=== PATIENT | female | born 1945 | race Two or more races ===

== ENCOUNTER 2023-05-23 14:20 | Emergency (ER) | payer OTHER, MEDICAID ==
[~2023-05-23] VITALS: Ht 172.7 cm; Wt 61.0 kg
[2023-05-23] MEDS: MORPHINE SULFATE 4 MG/ML CPJ (NOT FOR IM USE) IV STA (15:36)
[2023-05-23] MEDS: SODIUM CHLORIDE 0.9% 1,000 ML IV ONE (15:45)
[2023-05-23] MEDS: ONDANSETRON HCL 4MG/2ML INJ IV STA (15:45)
[2023-05-23 16:23] LABS: BASOPHILS % 0.5 % (0.0-2.0); EOSINOPHILS % 0.6 % (0.0-5.0); HEMATOCRIT. 28.6 % (36.0-48.0); HEMOGLOBIN. 9.6 g/dL (12.0-16.0); LYMPHOCYTES % 10.3 % (20.0-50.0); MEAN CORPUSCULAR HEMOGLOBIN 33.4 pg (28.0-32.0); MEAN CORPUSCULAR HGB CONC 33.4 g/dL (31.0-37.0); MEAN PLATELET VOLUME 8.8 fl (7.4-10.4); MONOCYTES % 10.2 % (2.0-8.0); NEUTROPHILS % 78.4 % (40.0-76.0); PLATELET 200 x1000/uL (130-400); RED BLOOD CELL COUNT 2.86 mill/uL (4.2-5.4); RED CELL DISTRIBUTION WIDTH 19.1 % (11.6-14.6); WHITE BLOOD COUNT 5.9 x1000/uL (4.5-11.0)
[2023-05-23 16:36] LABS: ALANINE AMINOTRANSFERASE 65 IU/L (10-49); ALBUMIN 3.5 g/dL (3.2-4.8); ASPARTATE AMINOTRANSFERASE 56 IU/L (<34); BILIRUBIN TOTAL 0.4 mg/dL (0.1-1.0); CALCIUM 8.3 mg/dL (8.7-10.4); CARBON DIOXIDE 26 mEq/L (21-32); CHLORIDE 106 mEq/L (98-107); CREATININE 1.7 mg/dL (0.6-1.0); GLUCOSE 89 mg/dL (70-105); POTASSIUM 5.2 mEq/L (3.5-5.1); PROTEIN TOTAL 6.1 g/dL (6.0-8.3); SODIUM 137 mEq/L (136-145); UREA NITROGEN BLOOD 11 mg/dL (9-23)
[2023-05-23 17:09] LABS: TROPONIN I HIGH SENSITIVITY 20 ng/L (3.0-34)
[2023-05-23] MEDS: ALBUTEROL (0.083%) 2.5MG/3ML NEB HHN STA (18:05)
[2023-05-23 18:09] VITALS: PULSE 51; RESP 20; O2SAT 94
[2023-05-23] MEDS: SODIUM POLYSTYRENE SULFONATE 15 G/60 ML BOT PO ONE (18:18)
[2023-05-23] MEDS: SODIUM BICARBONATE 8.4% 1 MEQ/ML 50ML SYR IV ONE (18:18)
[2023-05-23] MEDS: FUROSEMIDE 40MG/4ML VIAL IVP ONE (19:58)
[2023-05-23 22:57] VITALS: BP 122/40; PULSE 60; RESP 17; TEMP 98
== END 2023-05-23 22:30 | disposition short-term general hospital (02) ==
LOC: ER 14:20 → CANBEDREQ 23:25
DX: R51.9 Headache, unspecified (principal); M54.50 Low back pain, unspecified; E87.5 Hyperkalemia; E11.22 Type 2 diabetes mellitus with diabetic chronic kidney disease; N18.6 End stage renal disease; E87.70 Fluid overload, unspecified; Z99.2 Dependence on renal dialysis; Z88.0 Allergy status to penicillin; Z20.822 Contact with and (suspected) exposure to COVID-19
CPT/HCPCS: 99285; 70450; 96374; 71045; 96375; 87426; 80053; 83880; 85025; 84484; 36415; 72131; 72192; 94640; 93005; J1940; J2405; J3490; J2270

== ENCOUNTER 2025-03-01 04:37 | Emergency (ER) | payer OTHER, MEDICAID ==
[~2025-03-01] VITALS: Ht 167.6 cm; Wt 60.0 kg
[2025-03-01 04:40] VITALS: O2SAT 100
[2025-03-01 05:31] VITALS: TEMP 37.2
[2025-03-01 05:45] LABS: HEMATOCRIT. 31.7 % (36.0-48.0); HEMOGLOBIN. 9.9 g/dL (12.0-16.0); MEAN PLATELET VOLUME 8.6 fl (7.4-10.4); PLATELET 189 x1000/uL (130-400); RED BLOOD CELL COUNT 3.36 mill/uL (4.2-5.4); RED CELL DISTRIBUTION WIDTH 16.4 % (11.6-14.6)
[2025-03-01 05:54] LABS: UREA NITROGEN BLOOD 45.0 mg/dL (9-23)
[2025-03-01 05:59] LABS: CREATININE 7.1 mg/dL (0.6-1.0); TROPONIN I HIGH SENSITIVITY 73 ng/L (3.0-34)
[2025-03-01 08:47] LABS: BAND% 6.0 % (1.0-6.0); LYMPHOCYTES % MANUAL 7.0 % (20.0-60.0); MONOCYTES % MANUAL 2.0 % (2.0-8.0); NEUTROPHILS % MANUAL 85.0 % (45.0-75.0); PLATELET ESTIMATE NORMAL
[2025-03-01 10:06] VITALS: BP 153/55; PULSE 95; RESP 22; O2SAT 95
[2025-03-01] MEDS ORDERED: ASPIRIN 325MG EC TABLET PO ONE (10:45)
== END 2025-03-01 10:43 | disposition short-term general hospital (02) ==
LOC: ER 04:37 → CANBEDREQ 08:42 → ER 10:43
DX: R07.89 Other chest pain (principal); M79.605 Pain in left leg; E11.22 Type 2 diabetes mellitus with diabetic chronic kidney disease; I13.2 Hypertensive heart and chronic kidney disease with heart failure and with stage 5 chronic kidney disease, or end stage renal disease; N18.6 End stage renal disease; J45.909 Unspecified asthma, uncomplicated; Z99.2 Dependence on renal dialysis; Z91.158 Patient's noncompliance with renal dialysis for other reason; Z88.8 Allergy status to other drugs, medicaments and biological substances; Z88.0 Allergy status to penicillin
CPT/HCPCS: 99285; 93970; 71045; 80048; 85025; 84484; 36415; 93005; A4615